=== PATIENT | male | born 1975 | race Caucasian/White ===

== ENCOUNTER 2019-09-25 17:16 | Inpatient (IN) | payer SELFPAY ==
[~2019-09-25] VITALS: Ht 170.2 cm; Wt 82.1 kg
[2019-09-25 17:28] VITALS: Ht 170.2 cm; Wt 82.1 kg
--- NOTE | 2019-09-25 20:09 | NUR ---
CALLED TO TREATMENT AREA AT THIS TIME.
--- NOTE | 2019-09-25 20:16 | NUR ---
PT PRESENTED TO THE ED WITH C/O RIGHT SIDED ABD PAIN THE RADIATES TO THE BACK. PER THE PT, THE PAIN IS INTERMITTENT AND HAS BEEN OCCURING FOR THE PAST WEEK. PT STS THAT CERTAIN MOVEMENT CAN AGGRAVATE THE SHARP PAIN. PT DENIES ANY N/V. DENIES TAKING ANY PAIN MEDICATIONS TODAY.
[2019-09-25 21:25] LABS: microscopic required? NO
[2019-09-25 21:34] LABS: PLATELET COUNT 252 x10^3mcL (130-400); RED CELL DISTRIBUTION WIDTH 12.6 % (11.5-14.5)
[2019-09-25 21:49] LABS: CALCIUM 9.1 mg/dL (8.5-10.1); CARBON DIOXIDE 30.3 mmol/L (21-32); CHLORIDE SERUM 101 mmol/L (98-107); GFR1 > 60 mL/min; GLUCOSE SERUM 100 mg/dL (74-106); POTASSIUM SERUM 4.2 mmol/L (3.5-5.1); SODIUM SERUM 137 mmol/L (136-145)
[2019-09-25 21:50] LABS: ALBUMIN 3.7 g/dL (3.4-5.0); ALKALINE PHOSPHATASE 132 U/L (46-116); ALT/SGPT 47 U/L (16-63); AST/SGOT 42 U/L (15-37); BILIRUBIN TOTAL 0.55 mg/dL (0.20-1.00); LIPASE 83 IU/L (73-393); TOTAL PROTEIN, SERUM 7.5 g/dL (6.4-8.2)
[2019-09-25 22:00] LABS: urine erythrocyte NEGATIVE (NEGATIVE)
--- NOTE | 2019-09-25 23:00 | NUR ---
PT TAKEN TO CT SCAN AT THIS TIME VIA [facility]
--- NOTE | 2019-09-25 23:09 | NUR ---
PT RETURNED FROM CT SCAN
--- NOTE | 2019-09-26 00:07 | NUR ---
DR. GORDON SPEAKING TO THE PT IN REGARDS TO RESULTS OF THE CT SCAN
[2019-09-26 02:08] LABS: MAGNESIUM 2.3 mg/dL (1.8-2.4)
[2019-09-26 02:09] LABS: CHOLESTEROL/HDL RATIO 5.8
[2019-09-26 02:11] LABS: T3 TOTAL 0.99 ng/mL
[2019-09-26 02:17] LABS: FREE T4 1.14 ng/dL (0.76-1.46); FREE THYROXINE INDEX 2.6 ug/dL (1.4-4.5); T4(THYROXINE) 7.3 ug/dL (4.7-13.3)
[2019-09-26] MEDS ORDERED: NOR5 PO (02:21)
--- NOTE | 2019-09-26 02:49 | NUR ---
PT IS SLEEPING, EASILY AROUSABLE. BREATHING IS E/U ON RA. NO S/S OF ACUTE DISTRESS NOTED. PT CONNECTED TO FULL GATE PERSON. WILL CONT TO MONITOR
--- NOTE | 2019-09-26 04:10 | NUR ---
PT IS SLEEPING, EASILY AROUSABLE. RISE AND FALL OF CHEST SYMMETRIC. CONNECTED TO FULL MOLDED [employer] CUTTER AND CONT PULSE OX MONITORING. AT BEDSIDE. WILL CONT TO MONITOR
[2019-09-26 07:06] LABS: BASOPHIL % 0.2 % (0-2); PLATELET COUNT 230 x10^3mcL (130-400); RED CELL DISTRIBUTION WIDTH 12.2 % (11.5-14.5)
--- NOTE | 2019-09-26 07:11 | NUR ---
RECIEVED REPORT FROM BRITTANY CANALES FOR CONTINUED CARE OF PATIENT.
--- NOTE | 2019-09-26 07:14 | NUR ---
PATIENT LYING ON GURNEY- A/O NO SS OF DISTRESS NOTED. WILL CONTINUE TO MONITOR. BEDSIDE.
--- NOTE | 2019-09-26 07:17 | NUR ---
ORDERED REG DIET BREAKFAST PER DR GORDON.
[2019-09-26 07:28] LABS: CALCIUM 9.1 mg/dL (8.5-10.1); CARBON DIOXIDE 28.5 mmol/L (21-32); CHLORIDE SERUM 102 mmol/L (98-107); GFR1 > 60 mL/min; GLUCOSE SERUM 99 mg/dL (74-106); POTASSIUM SERUM 4.2 mmol/L (3.5-5.1); SODIUM SERUM 137 mmol/L (136-145)
--- NOTE | 2019-09-26 07:30 | NUR ---
PATIENT TAKEN FOR CT SCAN-- VSS, NAD NOTED.
--- NOTE | 2019-09-26 07:46 | NUR ---
PATIENT RETURNED TO THE ROOM FROM CT. WILL CONTINUE TO MONITOR.
--- NOTE | 2019-09-26 08:08 | NUR ---
PROVIDED REPORT TO BRITTANY HERZOG FOR CONTINUED CARE OF PATIENT.
--- NOTE | 2019-09-26 08:20 | NUR ---
RECEIVED PATIENT FROM ER NURSE VIA WHEELCHAIR WITH . PATIENT A&O X4, STEADY GAIT AND BALANCE NOTED NO ASSISTANCE NEEDED. IV ON LAC PATENT , INTACT NO REDNESS OR EDEMA NOTED. LUNGS CTA BILAT, ON RA 02 98%, RADIAL AND PEDAL PULSES STRONG BILAT, NO EDEMA NOTED. PATIENT REPORTS PAIN 2/10 IN BACK/FLANK PAIN OFFERED MEDS PATIENT REFUSED. REPOSITIONED AND DIMMED LIGHTS. ABD SOFT AND FLAT PATIENT DENIES ANY N/V AT THIS TIME. ALL QUESTIONS AND CONCERNS ADDRESSED AT THIS TIME. BED IN LOWEST POSITION CALL LIGHT WITHIN REACH. WILL CONTINUE TO MONITOR.
[2019-09-26 08:45] VITALS: BP 140/83
--- NOTE | 2019-09-26 09:02 | NUR ---
RECEIVED ORDER FOR BIOPSY OF LIVER MASS. SPOKE WITH PATIENT'S NURSE ROSENDA, PATIENT JUST FINISHED BREAKFAST, WILL KEEP NPO FROM THIS POINT.
[2019-09-26 09:48] VITALS: BP 150/101
--- NOTE | 2019-09-26 11:44 | NUR ---
PATIENT LYING IN BED TALKING WITH AT BEDSIDE. PATIENT SIGNED FOR MEDICAL RECORDS TO BE RELEASED FROM [facility] FOR HX OF LYMPHOMA. PATIENT AND VERBALIZE UNDERSTANDING. ALL QUESTIONS AND CONCERNS ADDRESSED AT THIS TIME. BED IN LOWEST POSITION CALL LIGHT WITHIN REACH. WILL CONTINUE TO MONITOR.
--- NOTE | 2019-09-26 12:30 | NUR ---
TRANSPORTED PATIENT TO CT FOR LIVER BIOPSY. PATIENT RELUCTANT TO PROCEED. CALL PLACED TO DR WATTS WHO STATES WILL CANCEL LIVER BIOPSY AT THIS TIME. RETURNED TO ROOM VIA WHEELCHAIR. PER PATIENT HE IS HAVING A PLANNED SURGERY ON THE LIVER MASS AND DOESN'T THINK A SEPARATE BIOPSY WOULD BE NECESSARY. PATIENT'S NURSE ROSENDA NOTIFIED.
--- NOTE | 2019-09-26 13:00 | NUR ---
PATIENT SITTING UP IN BED EATING LUNCH TOLERATING DIET WELL. ALL NEEDS ATTENDED TO AT THIS TIME. BED IN LOWEST POSITION CALL LIGHT WITHIN REACH.
--- NOTE | 2019-09-26 13:45 | NUR ---
NOTIFIED PATIENT OF NPO STATUS AWAITING SURGICAL CONSULT. PATIENT VERBALIZED UNDERSTANDING.
--- NOTE | 2019-09-26 17:00 | NUR ---
DR GARCIA AT BEDSIDE UPDATING PATIENT ON POC. PATIENT LYING IN BED WITH AT BEDSIDE DENIES PAIN AT THIS TIME. SAFETY PRECAUTIONS IN PLACE. WILL CONTINUE TO MONITOR.
--- NOTE | 2019-09-26 17:30 | NUR ---
Discount pharmacy card and list to low cost medical clinics given to patient by Tish.
[2019-09-26 17:45] VITALS: BP 131/81
--- NOTE | 2019-09-26 18:11 | NUR ---
PATIENT REPORTED BLOOD IN STOOL DR HERNANDEZ AWARE ORDERED FOR STOOL CULTURE. WILL PROCEED WITH ORDER.
--- NOTE | 2019-09-26 18:50 | NUR ---
PATIENT SITTING UP IN CHAIR TALKING WITH HIS , IV ON LAC PATENT AND INTACT NO REDNESS OR EDEMA. PATIENT DENIES ANY PAIN AT THIS TIME. NO S/S OF ANY ACUTE DISTRESS NOTED. ALL QUESTIONS AND CONCERNS ADDRESSED AT THIS TIME. BED IN LOWEST POSITION CALL LIGHT WITHIN REACH. WILL ENDORSE CARE TO NIGHT NURSE.
--- NOTE | 2019-09-26 19:30 | NUR ---
RECEIVED PT RESTING IN BED, NO ACUTE DISTRESS NOTED. PT AOX4, DENIES MCCLAIN/DIZZINESS. MEDSURG PT, DENEIS CP. PULSES PALPABLE BILAT, DENIES NUMBNESS/TINGLING INFEET. RESP EVEN AND UNLABORED ON RA, DENIES SOB. ABD SOFT, TENDER TO PALPATION. PT REPORTS INTERMITENT BLOOD IN STOOL, DENIES N/V/D. PT VOIDS FREELY, GENERALIZED WEAKNESS R/T PAIN. SKIN INTACT. IV SITE SALINE LOCKED TO LAC, NO REDNESS, SWELLING OR PAIN NOTED. ALL COMFORT AND SAFETY MEASURES PROVIDED FOR, CALL LIGHT WITHIN REACH, BED IN LOWEST POSITION, WILL CONTINUE TO MONITOR.
[2019-09-26 22:29] VITALS: BP 124/67
--- NOTE | 2019-09-27 | NUR ---
PT RESTING IN BED W/ EYES CLOSED, NO S/S OF PAIN NOTED. PT RESP EVEN AND UNLABORED ON RA, SYMMETRICAL RISE/FALL OF CHEST. IV SITE SALINE LOCKED, NO REDNESS, SWELLING OR PAIN NOTED. ALL COMOFRT AND SAFETY MEASURES PROVIDED FOR, CALL LIGHT WITHIN REACH, BED IN LOWEST POSITION, WILL CONTINUE TO MONITOR.
[2019-09-27 04:08] LABS: AMPHETAMINE QUAL UR NONE DETECTED (See below)
--- NOTE | 2019-09-27 05:05 | NUR ---
PT RESTED IN INTERVALS DURING SHIFT, NO ACUTE CHANGES OCCURRING OVERNIGHT. PT DENIES PAIN DURING SHIFT, IV SITE REMAINS PATENT TO LAC, NO REDNESS, SWELLING OR PAIN NOTED. PT SCHEDULED TO HAVE CT GUIDED LIVER BIPOSY, CHECK LIST STARTED, PT HAS NOT SIGNED CONSENT YET. WILL INQUIRE IF PROCEDURE HAS BEEN EXPLAINED IN DETAIL (RISK VS BENEFITS), ALL COMFORT AND SAFETY MEASURES PROVIDED FOR, CALL LIGHT WITHIN REACH, BED IN LOWEST POSITION, WILL CONTINUE TO MONITOR.
[2019-09-27 05:16] VITALS: BP 122/80
[2019-09-27 06:11] LABS: BASOPHIL % 0.4 % (0-2); PLATELET COUNT 227 x10^3mcL (130-400); RED CELL DISTRIBUTION WIDTH 12.9 % (11.5-14.5)
[2019-09-27 06:39] LABS: CALCIUM 9.1 mg/dL (8.5-10.1); CARBON DIOXIDE 29.2 mmol/L (21-32); CHLORIDE SERUM 102 mmol/L (98-107); CREATININE SERUM 1.1 mg/dL (0.7-1.3); GFR1 > 60 mL/min; GLUCOSE SERUM 91 mg/dL (74-106); MAGNESIUM 2.3 mg/dL (1.8-2.4); POTASSIUM SERUM 4.5 mmol/L (3.5-5.1); SODIUM SERUM 138 mmol/L (136-145)
[2019-09-27 07:35] VITALS: BP 126/85
--- NOTE | 2019-09-27 07:35 | NUR ---
RECEIVED PT IN BED. ASSESSED AND DOCUMENTED. DENIES PAIN THIS TIME. STABLE. AT BEDSIDE. SAFTEY PRECAUTIONS ARE IN PLACE. WILL MONITOR.
--- NOTE | 2019-09-27 10:00 | NUR ---
RADIOLOGY STAFF TOOK PT TO RADIOLOGY FOR CT GUIDED BIOPSY VIA WHEELCHAIR. [facility] NURSE SAID AFTER RADIOLOGIST AND PATHOLOGIST EXPLAIN TO THE PT ABOUT PROCEDURE SHE WILL GET CONSENT SIGN FOR CT GUIDED BIOPSY. INFORMED AND CHARGE NURSE. PT IS STABLE.
--- NOTE | 2019-09-27 12:30 | NUR ---
RECEIVED PT FROM RADIOLOGY AFTER CT GUIDED BIOPSY OF LIVER, V/S STABLE. DENIES ANY PAIN.
[2019-09-27 12:36] VITALS: BP 119/78
--- NOTE | 2019-09-27 15:00 | NUR ---
MONITOR PT V/S FOR Q15 X4 AND Q30MIN X2, ALL V/S STABLE. DENIES ANY PAIN. FAMILY AT BEDSIDE.
[2019-09-27 16:43] VITALS: BP 110/78
--- NOTE | 2019-09-27 19:10 | NUR ---
PT SITTING UP IN THE BED THIS TIME. HE WAS AMBULATING IN THE [address] WAY WELL. STABLE. GAVE REPORT TO DECORATOR HAND NURSE.
--- NOTE | 2019-09-27 19:30 | NUR ---
Pt. received from day shift currently resting in bed, awake and alert. Pt. at this time has no c/o of h/a, n,v, pain, chest pain, or SOB and s/o distress. Pt. is on RA, IV site Saline Locked on LAC 20g, patent and dressing in tact. Pt. at this time informed that when he passess stool, to put in cup so that it can be sent to lab for culture tonight. Otherwise pt. stable, safety in check w/ call light placed within reach, pt. educated on when and how to use call light system, bed set at lowest position, will continue to monitor pt.
--- NOTE | 2019-09-27 19:59 | NUR ---
STOOL COLLECTED AT THIS TIME FOR STOOL CULTURE, WILL ENDORSE TO CONTACT PRINTER DRY FILM TO BRING DOWN TO LAB AT THIS TIME.
[2019-09-27 20:02] VITALS: BP 124/80
--- NOTE | 2019-09-27 23:53 | NUR ---
Pt. c/o of pain in abdomen area, currently getting more uncomfortable, will medicate w/ norco as ordered and continue to monitor.
[2019-09-28 05:27] VITALS: BP 143/87
[2019-09-28 06:38] LABS: BASOPHIL % 0.3 % (0-2); PLATELET COUNT 229 x10^3mcL (130-400); RED CELL DISTRIBUTION WIDTH 12.3 % (11.5-14.5)
[2019-09-28 06:54] LABS: ALBUMIN 3.5 g/dL (3.4-5.0); ALKALINE PHOSPHATASE 126 U/L (46-116); ALT/SGPT 41 U/L (16-63); AST/SGOT 44 U/L (15-37); BILIRUBIN TOTAL 0.55 mg/dL (0.20-1.00); CARBON DIOXIDE 29.9 mmol/L (21-32); CHLORIDE SERUM 102 mmol/L (98-107); GFR1 > 60 mL/min; GLUCOSE SERUM 86 mg/dL (74-106); MAGNESIUM 2.4 mg/dL (1.8-2.4); PHOSPHOROUS 4.2 mg/dL (2.5-4.9); POTASSIUM SERUM 4.2 mmol/L (3.5-5.1); SODIUM SERUM 138 mmol/L (136-145); TOTAL PROTEIN, SERUM 7.5 g/dL (6.4-8.2)
--- NOTE | 2019-09-28 07:13 | NUR ---
RECEIVED REPORT FROM CLYDE SOTO. PATIENT RESTING COMFORTABLY IN BED WITH AT BEDSIDE. ALL NEEDS MET. SALINE LOCK TO LAC IS PATENT AND INTACT. NO REDNESS OR PAIN. PT ON ROOM AIR. NO C/O SOB AND NO DISTRESS NOTED. ALL QUESTIONS AND CONCERNS ADDRESSED.
[2019-09-28 07:54] VITALS: BP 106/69
--- NOTE | 2019-09-28 09:00 | NUR ---
IN TO SEE PATIENT AND ADMINISTER MEDICATION (SEE eMAR). PATIENT SITTING COMFORTABLY IN BED WITH AND FRIEND AT BEDSIDE. PT BP IS 106/69 AND PATIENT IS REFUSING NORVASC STATING "THAT IS LOW FOR ME AND I DON'T WANT MY BP TO DROP TOO LOW." PT REPORTS SORENESS FROM BIOPSY YESTERDAY AND REQUESTS TYLENOL. TYLENOL GIVEN, WILL REASSESS PAIN. ALL OTHER NEEDS MET.
[2019-09-28] MEDS ORDERED: TYL325 PO (12:01)
--- NOTE | 2019-09-28 12:02 | NUR ---
IN TO SEE AND ASSESS PATIENT. PT STATES THAT A DOCTOR CAME IN TO SEE HIM AND DISCUSSED A PLAN TO DISCHARGE WITH FOLLOW UP ONCOLOGY. PT TO CALL AND SET UP APOINTMENT TOMORROW OFFICE IS CLOSED TODAY. DR INFORMED THAT HE WILL BE CALLED WITH BIOPSY RESULT AND RESULT WILL BE SENT TO ONCOLOGIST WELL. AWAITING DISCHARGE ORDER.
[2019-09-28] MEDS ORDERED: MIRALAX17 GM/Dose PO (12:06)
[2019-09-28 12:09] VITALS: BP 123/69
[2019-09-28 13:18] VITALS: BP 123/69
--- NOTE | 2019-09-28 14:03 | NUR ---
PT STABLE FOR DISCHARGE PER MD. DISCHARGE INSTRUCTIONS AND SUMMRY DISCUSSED WITH PATIENT. PATIENT VERBALIZED UNDERSTANDING AND AGREES TO FOLLOW UP WITH DR CASTILLO. ALL QUESTIONS AND CONCERNS ADDRESSED. PT TO NOTIFY WHEN HE IS READY TO GO.
== END 2019-09-28 15:00 | disposition home or self-care (01) | DRG 700 ==
LOC: ED 17:16 → MU 09-26 00:23
PROVIDERS: Emergency Medicine; Internal Medicine; ADMIT General Practice
PROC: 0FB03ZX Excision of Liver, Percutaneous Approach, Diagnostic (ICD-10-PCS; principal; 2019-09-27)
DX: N28.89 Other specified disorders of kidney and ureter (principal); I10 Essential (primary) hypertension; E78.5 Hyperlipidemia, unspecified; K64.9 Unspecified hemorrhoids; R16.0 Hepatomegaly, not elsewhere classified
CPT/HCPCS: 84439; 87046; 87046-59; 88344; C1894; G0378; J1885; J2001; J2250; J2270; J2405; J3010; J7030; Q0092; Q9967